=== PATIENT | female | born 1930 | race Caucasian/White ===

== ENCOUNTER 2016-11-28 16:28 | Emergency (ER) | payer MEDICARE ==
[~2016-11-28] VITALS: Ht 144.8 cm; Wt 62.6 kg
[2016-11-28] MEDS: PROMETHAZINE HCL 25 MG/1 ML VIAL IM ONE (17:46)
[2016-11-28] MEDS: HYDROMORPHONE 1 MG/1 ML DISP.SYRIN IM ONE (17:46)
--- NOTE | 2016-11-28 17:46 | NUR ---
Patient discharged to home in stable conditon. Written and verbal after care instructions given to patient and daughter. Patient and family verbalized understanding of instructions.
[2016-11-28] MEDS ORDERED: HYDROMORPHONE 1 MG/1 ML DISP.SYRIN ONE (17:57)
[2016-11-28] MEDS ORDERED: PROMETHAZINE HCL 25 MG/1 ML VIAL ONE (17:57)
== END 2016-11-28 17:50 | disposition home or self-care (01) ==
LOC: ER 16:28
DX: M47.9 Spondylosis, unspecified (principal); I10 Essential (primary) hypertension; M19.90 Unspecified osteoarthritis, unspecified site; Z88.1 Allergy status to other antibiotic agents; Z96.643 Presence of artificial hip joint, bilateral
CPT/HCPCS: A4663; J1170; J2550

== ENCOUNTER 2018-09-16 08:57 | Emergency (ER) | payer MEDICARE, MEDICAID ==
[~2018-09-16] VITALS: Ht 152.4 cm; Wt 56.7 kg
--- NOTE | 2018-09-16 09:00 | NUR ---
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 PT REPORTS SHE FELT DIZZY WHEN STANDING FROM A SITTING POSITION AND FELT DIZZY PRIOR TO FALLING ON HER BUTTOCKS. PT DENIES HEAD INJURY/LOC. SECONDARY COMPLAINT: HEADACHE X 1 HOUR, PAIN IS NON-PROVOKED, ACHING IN QUALITY, DOES NOT RADIATE, 7/10, CONSTANT. NO RESPIRATORY DISTRESS NOTED. VSS. PT DENIES C/P, SOB, N/V/D.
--- NOTE | 2018-09-16 09:02 | NUR ---
BUSHRA LEWIS AT BEDSIDE FOR MSE.
[2018-09-16] MEDS ORDERED: UNK B/P MED (09:03)
[2018-09-16 09:27] LABS: BASOPHILS % (AUTO) 0.3 % (0.0-2.0); EOSINOPHILS # (AUTO) 0.2 K/uL (0.0-0.7); EOSINOPHILS % (AUTO) 2.6 % (0.0-7.0); HEMATOCRIT 36.6 % (31.2-41.9); HEMOGLOBIN 12.3 g/dL (10.9-14.3); LYMPHOCYTES # (AUTO) 2.5 K/uL (20.0-40.0); LYMPHOCYTES % (AUTO) 38.6 % (20.5-51.5); MEAN CORPUSCULAR HEMOGLOBIN 30.9 uug (24.7-32.8); MEAN CORPUSCULAR HGB CONC 34 g/dL (32.3-35.6); MONOCYTES # (AUTO) 0.4 K/uL (2.0-10.0); MONOCYTES % (AUTO) 6.8 % (0.0-11.0); NEUTROPHILS # (AUTO) 3.4 K/uL (1.8-8.9); NEUTROPHILS % (AUTO) 51.7 % (38.5-71.5); PLATELET COUNT (AUTO) 223 K/uL (179-408); RED BLOOD CELL COUNT(AUTO) 3.98 MIL/uL (3.63-4.92); WHITE BLOOD COUNT (AUTO) 6.5 K/uL (3.8-11.8)
[2018-09-16 09:31] LABS: CARBON DIOXIDE 28 mmol/L (21-32); CHLORIDE 102 mmol/L (98-107); CREATININE 1.1 mg/dL (0.6-1.3); GLUCOSE 104 mg/dL (74-106); POTASSIUM 4.2 mmol/L (3.5-5.1); UREA NITROGEN, BLOOD 23 mg/dL (7-18)
--- NOTE | 2018-09-16 09:32 | NUR ---
PT TAKEN TO RADIOLOGY FOR CT SCAN.
--- NOTE | 2018-09-16 09:47 | NUR ---
PT BACK IN ER FROM RADIOLOGY.
[2018-09-16] MEDS ORDERED: IV NORMAL SALINE 250 ML IV ONE (10:08)
[2018-09-16] MEDS ORDERED: SWABABLE VALVE TRANSFER SET EA MC ONE (10:08)
[2018-09-16] MEDS ORDERED: IOHEXOL 350 100 ML INFUS..BTL ONE (10:08)
[2018-09-16] MEDS ORDERED: MORPHINE SULFATE 2 MG/1 ML DISP.SYRIN IV ONE (10:15)
[2018-09-16] MEDS ORDERED: MORPHINE SULFATE 2 MG/1 ML DISP.SYRIN ONE (10:18)
--- NOTE | 2018-09-16 10:20 | NUR ---
PT TAKEN TO RADIOLOGY FOR CTA.
--- NOTE | 2018-09-16 10:35 | NUR ---
PT BACK IN ER FROM RADIOLOGY.
--- NOTE | 2018-09-16 11:56 | NUR ---
PT ABLE TO SELF-AMBULATE W/O ASSISTANCE.
--- NOTE | 2018-09-16 12:23 | NUR ---
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
--- NOTE | 2018-09-16 14:09 | NUR ---
Patient discharged to home in stable conditon. Written and verbal after care instructions given. Patient verbalizes understanding of instructions. ALL BELONGINGS W/ PT. PT SELF-AMBULATED W/O DIFFICULTY.
[2018-09-16 14:10] VITALS: BP 142/72
--- NOTE | 2018-09-16 14:10 | NUR ---
20G IV ACCESS IN LAC REMOVED PRIOR TO D/C - INNER CANNULA INTACT.
== END 2018-09-16 14:11 | disposition home or self-care (01) ==
LOC: EDBD 08:57 → ER 08:57
DX: S40.011A Contusion of right shoulder, initial encounter (principal); S80.02XA Contusion of left knee, initial encounter; M54.9 Dorsalgia, unspecified; R55 Syncope and collapse; I10 Essential (primary) hypertension; Z88.1 Allergy status to other antibiotic agents; W18.30XA Fall on same level, unspecified, initial encounter; Y93.89 Activity, other specified; Y92.89 Other specified places as the place of occurrence of the external cause; Y99.8 Other external cause status
CPT/HCPCS: 36415; 70450; 71045; 71275; 72170; 73030; 80048; 84484 ×2; 85025; 85379; 93005 ×2; 96374; 99284; J2270; Q9967; 70030-TC; A4663; J7050